=== PATIENT | female | born 1990 | race American Indian/Alaskan Native ===

== ENCOUNTER 2017-03-26 18:32 | Emergency (ER) | payer MEDICAID, OTHER ==
[2017-03-26] MEDS ORDERED: Oxycodone/Acetaminophen 5/325 mg Tab PO STA (18:48)
[2017-03-26 19:04] VITALS: BP 126/60; PULSE 78; RESP 16; TEMP 98.3; BMI 34.7
--- NOTE | 2017-03-26 19:06 | ED PDOC ---
Arrival/HPI - General Chief Complaint: Back Pain Time Seen by Provider: 03/26/17 18:48 Historian: Patient - History of Present Illness Narrative History of Present Illness (Text): 03/26/17 19:03 27yr old female presents today with low back pain radiating into the right leg x 6 days. pt denies trauma or injury. denies fever/chills. denies bladder or bowel incontinence. denies numbness, weakness, tingling in the extremity. pt states pain started as sharp stabbing pain in low back and buttock and as been gradually worsening. pt states pain shoots into right lower leg. states she has been taking motrin for pain at home without improvement. denies hx of sciatica in the past. denies abdominal pain. pt states pain is worse with ambulation. no other complaints. Symptom Onset: Gradual Symptom Course: Worsening Quality: Aching, Stabbing Severity Level: 8 Past Medical History - Provider Review Nursing Documentation Reviewed: Yes - Travel History Have you recently traveled outside [place] w/in the past 3 mons?: No - Tetanus Immunization Tetanus Immunization: Unknown - Cardiac Hx Cardiac Disorders: No - Pulmonary Hx Respiratory Disorders: No - Neurological Hx Neurological Disorder: No - HEENT Hx HEENT Disorder: No - Renal Hx Renal Disorder: No - Endocrine/Metabolic Hx Endocrine Disorders: No - Hematological/Oncological Hx Blood Disorders: No - Integumentary Hx Dermatological Disorder: No - Musculoskeletal/Rheumatological Hx Musculoskeletal Disorders: No - Gastrointestinal Hx Gastrointestinal Disorders: No - Genitourinary/Gynecological Hx Genitourinary Disorders: No - Psychiatric Hx Psychophysiologic Disorder: No Hx Substance Use: No - Anesthesia Hx Anesthesia: No Family/Social History - Physician Review Nursing Documentation Reviewed: Yes Family/Social History: Unknown Family HX Smoking Status: Never Smoked Hx Alcohol Use: No Hx Substance Use: No Allergies/Home Meds Allergies/Adverse Reactions: Allergies No Known Allergies Allergy (Verified 03/26/17 18:43) Review of Systems - Review of Systems Constitutional: absent: Fatigue, Fevers Respiratory: absent: SOB, Cough Cardiovascular: absent: Chest Pain, Palpitations Gastrointestinal: absent: Abdominal Pain, Diarrhea, Nausea, Vomiting Genitourinary Female: absent: Dysuria, Frequency, Hematuria, Urine Output Changes Musculoskeletal: Arthralgias, Back Pain. absent: Neck Pain Skin: absent: Rash, Pruritis Neurological: absent: Headache, Dizziness Psychiatric: absent: Anxiety, Depression Physical Exam Vital Signs Reviewed: Yes Vital Signs Temp Pulse Resp BP Pulse Ox 03/26/17 18:43 98.3 F 78 16 126/60 100 03/26/17 18:42 98.3 F 78 16 126/60 100 Temperature: Afebrile Blood Pressure: Normal Pulse: Regular Respiratory Rate: Normal Appearance: Positive for: Well-Appearing, Non-Toxic, Uncomfortable Pain Distress: None Mental Status: Positive for: Alert and Oriented X 3 - Systems Exam Head: Present: Atraumatic Mouth: Present: Moist Mucous Membranes Neck: Present: Normal Range of Motion Respiratory/Chest: Present: Clear to Auscultation, Good Air Exchange. No: Respiratory Distress, Accessory Muscle Use Cardiovascular: Present: Regular Rate and Rhythm, Normal S1, S2. No: Murmurs Abdomen: No: Tenderness Back: Present: Normal Inspection, Midline Tenderness, Paraspinal Tenderness. No : CVA Tenderness Upper Extremity: Present: Normal ROM Lower Extremity: Present: Normal Inspection, Normal ROM Neurological: Present: GCS=15 Skin: Present: Warm, Dry, Normal Color. No: Rashes Psychiatric: Present: Alert Medical Decision Making ED Course and Treatment: 03/26/17 19:06 Patient nontoxic well-appearing in no distress with stable vital signs. Toradol, Flexeril, percocet LS spine xray; no fracture Patient reassessment: Feeling slightly better with medications. ambulating with a steady gait. Muscle strength 5 out of 5 bilaterally. I advised to followup with the orthopedist within the next 2 days. Return if symptoms worsen persist or new symptoms develop Patient verbalizes understanding of discharge instructions and need for immediate followup. Impression: Back pain Motrin every 6 hours as needed for pain Flexeril one tablet every 8 hours as needed for muscle spasms: May cause drowsiness percocet; one tablet every 6 hours as needed for moderate to severe pain: May cause drowsiness Followup with the orthopedist within the next 2 days Followup with primary care physician within the next 2 days Return if symptoms worsen persist or if new symptoms develop 03/26/17 19:37 - RAD Interpretation Radiology Orders: 03/26/17 19:05 LS SPINE WITH OBL > 18 YRS OLD [RAD] Stat - Medication Orders Current Medication Orders: Discontinued Medications Cyclobenzaprine HCl (Flexeril) 10 mg PO STAT STA Stop: 03/26/17 18:49 Last Admin: 03/26/17 19:12 Dose: 10 mg Ketorolac Tromethamine (Toradol) 60 mg IM STAT STA Stop: 03/26/17 18:49 Last Admin: 03/26/17 19:13 Dose: 60 mg Oxycodone/Acetaminophen (Percocet 5/325 Mg Tab) 1 tab PO STAT STA Stop: 03/26/17 18:49 Last Admin: 03/26/17 19:09 Dose: 1 tab Disposition/Present on Arrival - Present on Arrival Any Indicators Present on Arrival: No History of DVT/PE: No History of Uncontrolled Diabetes: No Urinary Catheter: No History of Decub. Ulcer: No History Surgical Site Infection Following: None - Disposition Have Diagnosis and Disposition been Completed?: Yes Diagnosis: Back pain Disposition: HOME/ ROUTINE Disposition Time: 19:37 Patient Plan: Discharge Patient Problems: Current Active Problems Problem Status Onset Back pain Acute Condition: GOOD Discharge Instructions (ExitCare): Acute Low Back Pain (ED), Back Exercises (ED ) Additional Instructions: Motrin every 6 hours as needed for pain Flexeril one tablet every 8 hours as needed for muscle spasms: May cause drowsiness percocet; one tablet every 6 hours as needed for moderate to severe pain: May cause drowsiness Followup with the orthopedist within the next 2 days Followup with primary care physician within the next 2 days Return if symptoms worsen persist or if new symptoms develop Prescriptions: Cyclobenzaprine [Cyclobenzaprine HCl] 10 mg PO Q8 #10 tab Ibuprofen [Motrin] 600 mg PO Q6H PRN #20 tab PRN Reason: pain/fever reduction oxyCODONE/Acetaminophen [Percocet 5/325 mg Tab] 1 tab PO Q6H PRN #8 tab PRN Reason: moderate to severe pain Referrals: Mayco Acosta MD [Staff Provider] - Follow up with primary Nhan Anaya MD [Staff Provider] - Follow up with primary [facility] [place] [Outside] - Follow up with primary [facility] [place] [Outside] - Follow up with primary Forms: WORK NOTE
[2017-03-26 20:03] VITALS: O2SAT 98
--- NOTE | 2017-03-27 10:05 | RAD ---
PROCEDURE: Radiographs of the Lumbar Spine. HISTORY: back pain COMPARISON: No prior. FINDINGS: BONES: Normal alignment. No listhesis. No fracture. DISC SPACES: Unremarkable. OTHER FINDINGS: None. IMPRESSION: Unremarkable radiographs of the lumbar spine.
== END 2017-03-26 20:03 | disposition home or self-care (01) ==
LOC: ED 18:32
DX: M54.5 Low back pain (principal)
CPT/HCPCS: 72110; 96372; 99282; J1885